=== PATIENT | male | born 1970 | race Two or more races ===

== ENCOUNTER 2020-11-23 16:59 | Emergency (ER) | payer MEDICAID ==
[~2020-11-23] VITALS: Ht 177.8 cm; Wt 78.9 kg
[~2020-11-23 16:59] MED LIST: ALLO100T PO; BACDS PO; CYCL-394 PO; GABA-330 PO; HYDR-3717 PO; LISI-222 PO; METH-234 PO; NAPR-56 PO; OMEP-84 PO; PROP10TA10 PO; QUET-1 PO; SERT-153 PO
== END 2020-11-23 18:13 | disposition home or self-care (01) ==
LOC: ER 17:00
DX: Z20.828 Contact with and (suspected) exposure to other viral communicable diseases (principal); G43.909 Migraine, unspecified, not intractable, without status migrainosus; E78.00 Pure hypercholesterolemia, unspecified; I10 Essential (primary) hypertension; K21.9 Gastro-esophageal reflux disease without esophagitis; G89.29 Other chronic pain; Z98.890 Other specified postprocedural states; Z56.0 Unemployment, unspecified; Z59.0 Homelessness; Z88.8 Allergy status to other drugs, medicaments and biological substances; Z79.899 Other long term (current) drug therapy
CPT/HCPCS: 36415; 99282

== ENCOUNTER 2021-01-08 10:39 | Emergency (ER) | payer MEDICAID ==
[~2021-01-08] VITALS: Ht 177.8 cm; Wt 89.3 kg
[2021-01-08 11:51] LABS: EOSINOPHILS # (AUTO) 0.1 X10'3 (0-0.9); HEMOGLOBIN 14.4 g/dl (14.0-17.9); MONOCYTES # (AUTO) 0.4 X10'3 (0-0.9); RED BLOOD COUNT 4.44 X10'6 (4.70-6.10)
[2021-01-08 11:53] LABS: BASOPHILS % (AUTO) 0.9 % (0-1); HEMATOCRIT 41.5 % (42.0-52.0); LYMPHOCYTES # (AUTO) 1.2 X10'3 (1.1-4.8); LYMPHOCYTES % (AUTO) 29.7 % (21-51); MEAN CORPUSCULAR HEMOGLOBIN 32.5 PG (27.0-31.0); MEAN CORPUSCULAR HGB CONC 34.7 g/dL (33.0-36.5); MEAN CORPUSCULAR VOLUME 93.5 FL (78-98); MONOCYTES % (AUTO) 9.7 % (2-12); NEUTROPHILS # (AUTO) 2.4 X10'3 (1.8-7.7); NEUTROPHILS % (AUTO) 57.7 % (42-75); PLATELET COUNT 93 X10'3 (140-440); RED CELL DISTRIBUTION WIDTH 13.7 % (11.5-14.5); WHITE BLOOD COUNT 4.1 X10'3 (4.5-11.0)
[2021-01-08 11:56] LABS: ALANINE AMINOTRANSFERASE 28 U/L (12-78); ALBUMIN 4.1 G/DL (3.4-5.0); ALBUMIN/GLOBULIN RATIO 1.1 (1.1-1.5); ALKALINE PHOSPHATASE 73 IU/L (46-116); AMYLASE 47 U/L (25-115); ANION GAP 8 (8-16); ASPARTATE AMINO TRANSFERASE 27 U/L (10-37); BILIRUBIN,TOTAL 0.8 MG/DL (0.1-1.0); BLOOD UREA NITROGEN 19 MG/DL (7-18); BUN/CREATININE RATIO 23.8 (5.4-32.0); CALCIUM 8.7 MG/DL (8.5-10.1); CHLORIDE 105 MMOL/L (99-107); GLUCOSE 100 MG/DL (70-104); LIPASE 119 U/L (73-393); SODIUM 142 MMOL/L (135-145); TOTAL CARBON DIOXIDE 28.8 MMOL/L (24-32); TOTAL PROTEIN 7.8 G/DL (6.4-8.2); eGFR > 90 ML/MIN
--- NOTE | 2021-01-08 12:24 | NUR ---
Called to treatment area, not in lobby
--- NOTE | 2021-01-08 12:45 | NUR ---
Second call, not in lobby
--- NOTE | 2021-01-08 14:33 | NUR ---
Not in lobby after three attempts.
[2021-01-08 14:54] VITALS: BP 143/84
[2021-01-08 15:19] LABS: CLARITY,URINE CLEAR (Clear); COLOR,URINE YELLOW (Yellow); GLUCOSE, URINE NEGATIVE (Neg); KETONES,URINE NEGATIVE (Neg); LEUKOCYTE ESTERASE ,URINE NEGATIVE (Neg); NITRITES, URINE NEGATIVE (Neg); OCCULT BLOOD,URINE SMALL (Neg); PROTEIN,URINE NEGATIVE (Neg); UROBILINOGEN,URINE 0.2 E.U/dL (0.2-1.0)
[2021-01-08 15:28] LABS: UA COLLECTION TYPE VOIDED
[2021-01-08 15:29] LABS: SQUAMOUS EPITHELIAL CELL,UR FEW /LPF (FEW)
[2021-01-08 15:30] LABS: BACTERIA,URINE FEW /HPF (Neg); MUCUS STRANDS FEW /LPF (Neg); RBC,URINE 0-2 /HPF (0-2); WBC,URINE 0-4 /HPF (0-4)
== END 2021-01-08 15:43 | disposition home or self-care (01) ==
LOC: ER 10:40
DX: R10.11 Right upper quadrant pain (principal); G43.909 Migraine, unspecified, not intractable, without status migrainosus; E78.00 Pure hypercholesterolemia, unspecified; I10 Essential (primary) hypertension; K21.9 Gastro-esophageal reflux disease without esophagitis; G89.29 Other chronic pain; F32.9 Major depressive disorder, single episode, unspecified; Z86.19 Personal history of other infectious and parasitic diseases; Z98.890 Other specified postprocedural states; Z56.0 Unemployment, unspecified; Z59.0 Homelessness; Z88.5 Allergy status to narcotic agent; Z88.8 Allergy status to other drugs, medicaments and biological substances; Z79.899 Other long term (current) drug therapy; Z79.2 Long term (current) use of antibiotics
CPT/HCPCS: 36415; 80053; 81001; 82150; 83690; 85025; 99283

== ENCOUNTER 2021-01-25 16:14 | Emergency (ER) | payer MEDICAID ==
[~2021-01-25] VITALS: Ht 177.8 cm; Wt 91.8 kg
[2021-01-25] MEDS ORDERED: cyclobenzaprine 10mg tablet PO ONE (16:40)
[2021-01-25] MEDS ORDERED: acetaminophen 325mg tablet PO ONE (16:40)
[2021-01-25] MEDS ORDERED: CYCL-1 PO (17:10)
[2021-01-25 17:36] VITALS: BP 147/77
== END 2021-01-25 17:34 | disposition home or self-care (01) ==
LOC: ER 16:15
DX: M79.662 Pain in left lower leg (principal); G43.909 Migraine, unspecified, not intractable, without status migrainosus; E78.00 Pure hypercholesterolemia, unspecified; I10 Essential (primary) hypertension; K21.9 Gastro-esophageal reflux disease without esophagitis; G89.29 Other chronic pain; F32.9 Major depressive disorder, single episode, unspecified; Z98.890 Other specified postprocedural states; Z59.0 Homelessness; Z56.0 Unemployment, unspecified; Z88.5 Allergy status to narcotic agent; Z88.6 Allergy status to analgesic agent; Z88.8 Allergy status to other drugs, medicaments and biological substances; Z79.899 Other long term (current) drug therapy
CPT/HCPCS: 73590; 99283

== ENCOUNTER 2021-01-28 16:37 | Emergency (ER) | payer MEDICAID ==
[~2021-01-28] VITALS: Ht 177.8 cm; Wt 89.1 kg
[~2021-01-28 16:37] MED LIST changes: +CYCL-1 PO
--- NOTE | 2021-01-28 18:47 | NUR ---
Pt oob and ambulating with slow steady gait to BR to void. Vascular at bedside now to begin LLE study. Pt has friend at bedside. Current VSS. paini 4-5 out of 10.
[2021-01-28 20:03] VITALS: BP 152/89
== END 2021-01-28 20:08 | disposition home or self-care (01) ==
LOC: ER 16:38
DX: M79.89 Other specified soft tissue disorders (principal); M79.662 Pain in left lower leg; G43.909 Migraine, unspecified, not intractable, without status migrainosus; E78.00 Pure hypercholesterolemia, unspecified; I10 Essential (primary) hypertension; K21.9 Gastro-esophageal reflux disease without esophagitis; G89.29 Other chronic pain; Z86.19 Personal history of other infectious and parasitic diseases; Z59.0 Homelessness; Z88.8 Allergy status to other drugs, medicaments and biological substances; Z79.899 Other long term (current) drug therapy
CPT/HCPCS: 93970; 99284

== ENCOUNTER 2021-11-16 11:54 | Emergency (ER) | payer MEDICAID ==
[~2021-11-16] VITALS: Ht 177.8 cm; Wt 92.7 kg
[2021-11-16 13:41] LABS: BASOPHILS % (AUTO) 0.5 % (0-1); EOSINOPHILS # (AUTO) 0.1 X10'3 (0-0.9); EOSINOPHILS % (AUTO) 1.9 % (0-6); HEMATOCRIT 44.7 % (42.0-52.0); HEMOGLOBIN 15.7 g/dl (14.0-17.9); LYMPHOCYTES # (AUTO) 1.4 X10'3 (1.1-4.8); LYMPHOCYTES % (AUTO) 24.7 % (21-51); MEAN CORPUSCULAR HEMOGLOBIN 32.2 PG (27.0-31.0); MEAN CORPUSCULAR HGB CONC 35.2 g/dL (33.0-36.5); MEAN CORPUSCULAR VOLUME 91.5 FL (78-98); MEAN PLATELET VOLUME 8.3 FL (7.4-10.4); MONOCYTES # (AUTO) 0.4 X10'3 (0-0.9); MONOCYTES % (AUTO) 7.3 % (2-12); NEUTROPHILS # (AUTO) 3.7 X10'3 (1.8-7.7); NEUTROPHILS % (AUTO) 65.6 % (42-75); PLATELET COUNT 96 X10'3 (140-440); RED BLOOD COUNT 4.89 X10'6 (4.70-6.10); RED CELL DISTRIBUTION WIDTH 13.7 % (11.5-14.5); WHITE BLOOD COUNT 5.6 X10'3 (4.5-11.0)
[2021-11-16 13:55] LABS: ALANINE AMINOTRANSFERASE 28 U/L (12-78); ALBUMIN 4.5 G/DL (3.4-5.0); ALBUMIN/GLOBULIN RATIO 1.2 (1.1-1.5); ALKALINE PHOSPHATASE 83 IU/L (46-116); ANION GAP 6 (8-16); ASPARTATE AMINO TRANSFERASE 27 U/L (10-37); BILIRUBIN,TOTAL 0.8 MG/DL (0.1-1.0); BLOOD UREA NITROGEN 16 MG/DL (7-18); CALCIUM 9.2 MG/DL (8.5-10.1); CHLORIDE 104 MMOL/L (99-107); CREATININE 1.07 MG/DL (0.60-1.10); GLUCOSE 98 MG/DL (70-104); LIPASE 109 U/L (73-393); POTASSIUM 4.4 MMOL/L (3.5-5.1); SODIUM 141 MMOL/L (135-145); TOTAL CARBON DIOXIDE 30.8 MMOL/L (24-32); TOTAL PROTEIN 8.3 G/DL (6.4-8.2); eGFR 73 ML/MIN
[2021-11-16 14:51] VITALS: BP 132/66
== END 2021-11-16 16:15 | disposition home or self-care (01) ==
LOC: ER 11:55
DX: S30.1XXA Contusion of abdominal wall, initial encounter (principal); G43.909 Migraine, unspecified, not intractable, without status migrainosus; E78.00 Pure hypercholesterolemia, unspecified; I10 Essential (primary) hypertension; K74.60 Unspecified cirrhosis of liver; K21.9 Gastro-esophageal reflux disease without esophagitis; G89.29 Other chronic pain; Z86.19 Personal history of other infectious and parasitic diseases; Z59.00 Homelessness unspecified; Z88.8 Allergy status to other drugs, medicaments and biological substances; Z79.899 Other long term (current) drug therapy; X58.XXXA Exposure to other specified factors, initial encounter; Y93.89 Activity, other specified; Y92.89 Other specified places as the place of occurrence of the external cause; Y99.8 Other external cause status
CPT/HCPCS: 36415; 80053; 83690; 85025; 85610; 99283

== ENCOUNTER 2021-12-21 09:57 | Day surgery (SDC) | payer MEDICAID ==
[~2021-12-21] VITALS: Ht 177.8 cm; Wt 94.3 kg
[2021-12-21 10:10] VITALS: BP 149/78
[2021-12-21] MEDS ORDERED: MIDAZolam 1 MG/ML 5ML VIAL ONE (11:45)
[2021-12-21] MEDS ORDERED: fentaNYL/PF 50MCG/1 ML 2ML syringe ONE (11:45)
[2021-12-21 12:12] VITALS: BP 128/73
[2021-12-21 12:22] VITALS: BP 129/70
[2021-12-21 12:32] VITALS: BP 127/69
[2021-12-21 12:37] VITALS: BP 129/68
== END 2021-12-21 13:07 | disposition home or self-care (01) ==
LOC: GI LAB 09:57
PROVIDERS: ATTEND Internal Medicine Gastroenterology
DX: R19.5 Other fecal abnormalities (principal); D12.4 Benign neoplasm of descending colon; K64.8 Other hemorrhoids; Z87.891 Personal history of nicotine dependence; Z88.5 Allergy status to narcotic agent; Z88.8 Allergy status to other drugs, medicaments and biological substances
CPT/HCPCS: 45385; 99152; C1773; J2250; J3010; J7040; Z7512; A4620

== ENCOUNTER 2023-09-30 15:37 | Emergency (ER) | payer MEDICAID ==
[~2023-09-30] VITALS: Ht 177.8 cm; Wt 107.5 kg
[~2023-09-30 15:37] MED LIST changes: -ALLO100T PO; -BACDS PO; -CYCL-1 PO; -CYCL-394 PO; -GABA-330 PO; -HYDR-3717 PO; -METH-234 PO; -NAPR-56 PO; -OMEP-84 PO; -PROP10TA10 PO; -QUET-1 PO; -SERT-153 PO
[2023-09-30 16:16] VITALS: BP 126/70; PULSE 66; RESP 16; TEMP 97.2; O2SAT 95
[2023-09-30] MEDS ORDERED: Thrombin (Bovine) 5,000 unit vial TP ONE (16:30)
[2023-09-30] MEDS ORDERED: BUPIVAcaine/PF 7.5 mg/ml (0.75%) 30ml vial IJ ONE (16:45)
--- NOTE | 2023-09-30 18:57 | NUR ---
I AGREE WITH THE ASSESSMENT PER Erik GRIER LVN.
== END 2023-09-30 17:46 | disposition home or self-care (01) ==
LOC: ER 15:38
DX: K04.7 Periapical abscess without sinus (principal); I10 Essential (primary) hypertension; E78.00 Pure hypercholesterolemia, unspecified; G89.29 Other chronic pain; M54.9 Dorsalgia, unspecified; Z88.5 Allergy status to narcotic agent; Z88.8 Allergy status to other drugs, medicaments and biological substances
CPT/HCPCS: 64400; 99284

== ENCOUNTER 2023-11-08 08:50 | Emergency (ER) | payer MEDICAID ==
[~2023-11-08] VITALS: Ht 177.8 cm; Wt 108.7 kg
[2023-11-08 08:57] VITALS: TEMP 97.6
[2023-11-08 09:08] LABS: BASOPHILS # (AUTO) 0.1 X10'3 (0-0.2); BASOPHILS % (AUTO) 0.8 % (0-1); EOSINOPHILS # (AUTO) 0.1 X10'3 (0-0.9); EOSINOPHILS % (AUTO) 1.8 % (0-6); HEMATOCRIT 46.2 % (42.0-52.0); LYMPHOCYTES # (AUTO) 1.5 X10'3 (1.1-4.8); LYMPHOCYTES % (AUTO) 23.7 % (21-51); MEAN CORPUSCULAR HEMOGLOBIN 32.9 PG (27.0-31.0); MEAN CORPUSCULAR HGB CONC 34.7 g/dL (33.0-36.5); MEAN CORPUSCULAR VOLUME 94.8 FL (78-98); MONOCYTES # (AUTO) 0.6 X10'3 (0-0.9); MONOCYTES % (AUTO) 9.1 % (2-12); NEUTROPHILS # (AUTO) 4.2 X10'3 (1.8-7.7); NEUTROPHILS % (AUTO) 64.6 % (42-75); PLATELET COUNT 111 X10'3 (140-440); RED BLOOD COUNT 4.88 X10'6 (4.70-6.10); RED CELL DISTRIBUTION WIDTH 13.8 % (11.5-14.5); WHITE BLOOD COUNT 6.5 X10'3 (4.5-11.0)
[2023-11-08 09:23] LABS: ALANINE AMINOTRANSFERASE 58 U/L (12-78); ALBUMIN 4.1 G/DL (3.4-5.0); ALBUMIN/GLOBULIN RATIO 1.1 (1.1-1.5); ALKALINE PHOSPHATASE 88 IU/L (46-116); ANION GAP 7 (8-16); ASPARTATE AMINO TRANSFERASE 36 U/L (10-37); BILIRUBIN,TOTAL 0.6 MG/DL (0.1-1.0); BLOOD UREA NITROGEN 18 MG/DL (7-18); BUN/CREATININE RATIO 17.5 (10.0-20.0); CALCIUM 9.4 MG/DL (8.5-10.1); CHLORIDE 103 MMOL/L (99-107); CREATININE 1.03 MG/DL (0.60-1.10); GLUCOSE 125 MG/DL (70-104); POTASSIUM 4.1 MMOL/L (3.5-5.1); SODIUM 138 MMOL/L (135-145); TOTAL CARBON DIOXIDE 27.9 MMOL/L (24-32); eCRCL 85 ML/MIN; eGFR 75 ML/MIN
[2023-11-08 09:29] LABS: PRO BRAIN NATRIURETIC PEPTIDE 52 PG/ML (0-125)
[2023-11-08 12:11] VITALS: BP 113/73; PULSE 62; RESP 18; O2SAT 96
== END 2023-11-08 12:12 | disposition home or self-care (01) ==
LOC: ER 08:50
DX: R53.1 Weakness (principal); Z20.822 Contact with and (suspected) exposure to COVID-19; R06.02 Shortness of breath; R07.89 Other chest pain; R53.83 Other fatigue; R11.0 Nausea; Z88.8 Allergy status to other drugs, medicaments and biological substances; Z79.899 Other long term (current) drug therapy; G43.909 Migraine, unspecified, not intractable, without status migrainosus; I11.0 Hypertensive heart disease with heart failure; I50.9 Heart failure, unspecified; E78.00 Pure hypercholesterolemia, unspecified; G89.29 Other chronic pain; Z95.5 Presence of coronary angioplasty implant and graft; Z59.00 Homelessness unspecified
CPT/HCPCS: 36415; 71045; 80053; 83880; 84484; 85025; 87811; 93005; 99285

== ENCOUNTER 2024-04-02 10:37 | Outpatient (CLI) | payer MEDICAID | END 2024-04-02 23:59 | disposition home or self-care (01) | LOC: RAD 10:37 | PROVIDERS: ATTEND Nurse Practitioner Family | DX: R10.30 Lower abdominal pain, unspecified (principal) | CPT/HCPCS: 76700; 93978 ==